=== PATIENT | female | born 1960 | race Caucasian/White ===

== ENCOUNTER 2017-04-27 15:18 | Day surgery (SDC) | payer OTHER ==
[2017-04-27] VITALS (11 sets, daily range): BP systolic 127–163; BP diastolic 75–88; PULSE 94–104; RESP 14–18; Ht 165.1 cm; Wt 94.4 kg
[~2017-04-27] VITALS: Ht 165.1 cm; Wt 94.4 kg
[~2017-04-27 15:18] MED LIST: CEFAZOLIN 1 GM INJ ONE; CEFAZOLIN 1 GM/50 ML (PMX) 50 ML IVPB SCH; LACTATED RINGER'S 1,000 ML IV* SCH
[2017-04-27 16:23] LABS: BASOPHILS % 0.3 % (0.0-2.0); EOSINOPHILS # 0.1 10^3/ul (0.0-0.5); EOSINOPHILS % 0.9 % (0.0-7.0); HEMATOCRIT 43.4 % (37.0-47.0); HEMOGLOBIN 15.1 g/dl (12.0-16.0); LYMPHOCYTES # 2.4 10^3/ul (0.8-2.9); LYMPHOCYTES % 26.1 % (15.0-51.0); MEAN CORPUSCULAR HEMOGLOBIN 30.6 pg (29.0-33.0); MEAN CORPUSCULAR HGB CONC 34.8 g/dl (32.0-37.0); MEAN PLATELET VOLUME 9.9 fl (7.4-10.4); MONOCYTE # 0.7 10^3/ul (0.3-0.9); MONOCYTES % 7.5 % (0.0-11.0); NEUTROPHILS % 64.8 % (39.0-77.0); PLATELET COUNT 303 10^3/UL (140-415); RED BLOOD COUNT 4.93 10^6/ul (4.20-5.40); RED CELL DISTRIBUTION WIDTH 12.7 % (11.5-14.5); WHITE BLOOD COUNT 9.3 10^3/ul (4.8-10.8)
[2017-04-27] MEDS ORDERED: SIMV5TAB50 PO (16:28)
[2017-04-27] MEDS ORDERED: LISI-313 PO (16:28)
[2017-04-27] MEDS ORDERED: GLIP5TAB13 PO (16:29)
[2017-04-27] MEDS ORDERED: SITA1TAB5 PO (16:29)
[2017-04-27 16:35] LABS: INR 0.92; PROTIME 12.4 Sec (12.2-14.2)
[2017-04-27 16:36] LABS: PARTIAL THROMBOPLASTIN TIME 26.9 Sec (25.0-35.0)
--- NOTE | 2017-04-27 16:36 | HPN ---
Date/Time of Note Date/Time of Note DATE: 04/27/17 TIME: 16:36 Interval H&P Admission Note Pt. seen H&P reviewed: No system changes DIAN VICTOR Apr 27, 2017 16:36
[2017-04-27] MEDS ORDERED: LIDOCAINE 1% (STERILE-PAK) 30 ML INJ ONE (16:38)
[2017-04-27] MEDS ORDERED: BUPIVACAINE 0.5% (SDV) 30 ML INJ ONE (16:39)
[2017-04-27 16:43] LABS: ALBUMIN 4.8 g/dl (3.3-4.9); ALBUMIN/GLOBULIN RATIO 1.2; BILIRUBIN,INDIRECT 1.1 mg/dl (0-1.1); BILIRUBIN,TOTAL 1.1 mg/dl (0.2-1.3); CALCIUM 10.3 mg/dl (8.4-10.2); CREATININE 0.87 mg/dl (0.44-1.00); POTASSIUM 4.2 mmol/L (3.5-5.1); TOTAL PROTEIN 8.8 g/dl (6.1-8.1)
[2017-04-27] MEDS ORDERED: MIDAZOLAM 1 MG/ML 2 ML INJ ONE (17:09)
[2017-04-27] MEDS ORDERED: FENTAnyl 50 MCG/ML VIAL ONE (17:09)
[2017-04-27] MEDS ORDERED: LIDOCAINE 2% (SDV) 5 ML INJ ONE (17:09)
[2017-04-27] MEDS ORDERED: PROPOFOL 20 ML ONE (17:09)
[2017-04-27] MEDS ORDERED: PHENYLephrine (100 MCG/ML) 5ML SYG ONE (17:09)
[2017-04-27] MEDS ORDERED: FAMOTIDINE 20 MG INJ ONE (17:33)
[2017-04-27] MEDS ORDERED: ONDANSETRON 4 MG INJ ONE (17:33)
[2017-04-27] MEDS ORDERED: ACETAMINOPHEN 1000MG/100ML IV 100 ML ONE (17:33)
[2017-04-27] MEDS ORDERED: DEXAMETHASONE 4 MG/ML 1 ML INJ ONE (17:33)
[2017-04-27] MEDS ORDERED: HYDROmorphONE 2 MG/ML SYG ONE (17:37)
[2017-04-27] MEDS ORDERED: SUGAMMADEX SODIUM 200 MG/2 ML VIAL IV ONE (18:04)
--- NOTE | 2017-04-27 18:29 | OPR ---
Date/Time of Note Date/Time of Note DATE: 04/27/17 TIME: 18:27 Operative Report Preoperative Diagnosis left carpal tunnel syndrome, left forearm masses in five locations Postoperative Diagnosis left carpal tunnel syndrome, left forearm masses in five locations Operation/Procedure Performed left carpal tunnel release, excision of left forearm masses in five locations Surgeon: DIAN VICTOR Anesthesia Type: general Estimated Blood Loss: 0 - 10 ml's Transfusion Required: no Specimens left forearm masses (distal, mid, proximal) Grafts/Implants: none Complications: no DIAN VICTOR Apr 27, 2017 18:29
[2017-04-27] MEDS ORDERED: METOCLOPRAMIDE 10 MG INJ IV PRN (19:00)
[2017-04-27] MEDS ORDERED: KETOROLAC 30 MG INJ IV PRN (19:00)
[2017-04-27] MEDS ORDERED: LABETALOL HCL 20MG INJ IV PRN (19:00)
[2017-04-27] MEDS ORDERED: FENTAnyl 50 MCG/ML VIAL IV PRN ×3 (19:00)
[2017-04-27] MEDS ORDERED: OXYCODONE/ACETAMINOPHEN (5/325) TAB PO PRN ×2 (19:00)
[2017-04-27] MEDS ORDERED: GLUCOSE GEL 15 GRAM TUBE BUCCAL PRN (19:00)
[2017-04-27] MEDS ORDERED: DEXTROSE 50% 50 ML SYRINGE IV PRN ×2 (19:00)
[2017-04-27] MEDS ORDERED: hydrALAzine 20 MG INJ IV PRN (19:00)
[2017-04-27] MEDS ORDERED: GLUCAGON 1 MG INJ IM PRN (19:00)
[2017-04-27] MEDS ORDERED: INSULIN ASPART [NOVOLOG] 3 ML PEN SC ONE (19:00)
[2017-04-27] MEDS ORDERED: GLUCOSE GEL 15 GRAM TUBE PO PRN ×2 (19:00)
--- NOTE | 2017-04-27 21:50 | OPR ---
DATE OF OPERATION: 04/27/2017 SURGEON: Meir Carlos MD ANESTHESIA: General. PREOPERATIVE DIAGNOSIS: 1. Left carpal tunnel syndrome. 2. Left forearm lipomas in 2 distinct locations. 3. Left forearm lipomas in 3 distinct locations. 4. Left elbow lipomas in 2 distinct locations. OPERATION PERFORMED: 1. Left carpal tunnel release, open. 2. Excision of left forearm mass/lipoma measuring 2 cm in diameter at the distal left forearm. 3. Excision of deep mass measuring 3 cm in diameter from left forearm. 4. Excision of deep mass measuring 1 cm from left forearm. 5. Excision of deep mass measuring 1 cm from left elbow. 6. Excision of deep mass from left elbow measuring 1 cm. OPERATIVE FINDINGS: 1. Compression of the median nerve at the carpal tunnel. 2. Multiple masses/lipomas in 5 distinct locations in the left forearm and elbow. INDICATIONS FOR PROCEDURE: A 56-year-old female with longstanding left carpal tunnel syndrome, refractory to conservative management. She also had multiple lipomas in the left forearm and elbow, and we discussed the options. She elected to proceed with surgical intervention, understanding the risks and benefits. OPERATIVE PROCEDURE: Patient was seen in the preoperative area. All further questions were answered. Again, she gave informed consent, understanding the risks and benefits. She was taken to the operating room and placed in the supine position. She was placed under general anesthesia, and Ancef 2 g IV given. Left upper extremity was prepped with ChloraPrep stick and draped in the usual sterile fashion. Esmarch bandage was used to exsanguinate the extremity, and tourniquet inflated to 250 mmHg. Attention was first turned to the carpal tunnel, and a 2-cm incision at the base of the palm was utilized, and sharp dissection carried down through skin and subcutaneous tissue. Retractors were deepened. The palmar aponeurosis was identified and was incised along its ulnar border. Retractors were deepened, and the transverse carpal ligament was identified and was incised along its ulnar border approximately 3 mm radial to the hook of the hamate. Retractor was placed distally, and the ligament was divided along its most distal extent under direct visualization. Attention turned proximally, and the ligament was divided under direct visualization along its ulnar border. Wound was copiously irrigated, and skin closed with 4-0 nylon. Attention turned to the distal forearm, and a 2-cm longitudinal incision was made directly over the mass. Sharp dissection carried down through skin and subcutaneous tissue. Scissor dissection dissected around the fatty mass, which was excised as a whole, measuring approximately 2 cm in diameter. Attention was then turned to the larger mass more proximally, and a 3-cm incision was made. Sharp dissection carried down through skin and subcutaneous tissue. Scissor dissection divided the soft tissues around the fatty mass, and the mass was taken off of the fascial layer. The mass was taken out as a whole. Attention turned more dorsally, and a separate incision was made, measuring 1 cm in length. Sharp dissection carried down through skin and subcutaneous tissue. Scissor dissection divided the soft tissues over the fatty mass, and the mass was excised as a whole, measuring 1 cm. Attention turned more proximally to the proximal forearm/elbow, and a transverse-type incision was made over area of 2 cystic masses, and sharp dissection carried down through skin and subcutaneous tissue. These two 1-cm masses were removed as a whole. Attention turned proximally to this, and a 1-cm incision transversely was made over the more proximal mass. Sharp dissection carried down through the skin and subcutaneous tissue, and scissor dissection divided the soft tissues of the fatty mass, which was excised as a whole. The masses were all sent for specimen. Wounds were copiously irrigated, and all 5 distinct incisions were closed with 4-0 nylon. Xeroform placed over the wounds, followed by sterile gauze, Webril, and bias dressing. Tourniquet deflated after 36 minutes, and patient was awakened from anesthesia. She was taken to the postoperative suite in stable condition and tolerated the procedure well, without complications SPECIMENS: 1. Left distal forearm mass. 2. Left mid forearm mass. 3. Left proximal forearm mass. ESTIMATED BLOOD LOSS: 5 cc. SPONGE, INSTRUMENT, NEEDLE COUNTS: Correct TOURNIQUET TIME: 36 minutes. CONDITION ON DISCHARGE: Stable. Dictated By: Meir Carlos MD /[email or web address]/ema /Document#: [id number]
== END 2017-04-27 20:30 | disposition home or self-care (01) ==
LOC: SDS 15:18
PROVIDERS: ATTEND Orthopaedic Surgery Hand Surgery
DX: G56.02 Carpal tunnel syndrome, left upper limb (principal); D17.22 Benign lipomatous neoplasm of skin and subcutaneous tissue of left arm; I10 Essential (primary) hypertension; E78.5 Hyperlipidemia, unspecified; E66.9 Obesity, unspecified; Z68.34 Body mass index [BMI] 34.0-34.9, adult
CPT/HCPCS: 11406; 64721; 80053; 82962; 84703; 85025; 85610; 85730; J0131; J0690; J1100; J1170; J1885; J2250; J2405; J3010; J1815; J2370